=== PATIENT | male | born 1995 | race Two or more races ===

== ENCOUNTER 2017-03-10 11:58 | Emergency (ER) | payer OTHER ==
[~2017-03-10] VITALS: Ht 170.2 cm; Wt 97.5 kg
--- NOTE | 2017-03-10 12:15 | Emergency Room Report ---
History of Present Illness General Chief Complaint: Laceration Source: Patient Present Illness HPI 21 y/o male c/o cut on left pinky finger at 10:30am. States he was working on the [employer] when his finger got caught. States he has a lot of bleeding on his left hand (non-dominant) that was able to be stopped with direct pressure. States he is able to bending his finger and has sensation of finger / hand. States his Tdap is UTD. No other complaints. Allergies: Coded Allergies: No Known Allergies (Unverified , 03/10/17) Patient History Limited by: language barrier Past Medical History: see triage record Past Surgical History: none Pertinent Family History: none Immunizations: UTD Reviewed Nursing Documentation: PMH: Agreed, PSxH: Agreed Nursing Documentation-PMH Past Medical History: No Stated History Review of Systems All Other Systems: negative except mentioned in HPI Physical Exam Vital Signs Date Time Temp Pulse Resp B/P Pulse Ox O2 Delivery O2 Flow Rate FiO2 03/10/17 12:03 98.2 63 18 166/96 97 Room Air Sp02 EP Interpretation: reviewed, normal General Appearance: no apparent distress, alert, GCS 15, non-toxic Head: normocephalic, atraumatic Eyes: bilateral eye normal inspection ENT: normal ENT inspection Respiratory: no respiratory distress, speaking full sentences Cardiovascular #1: normal peripheral pulses, normal capillary refill Musculoskeletal: back normal, gait/station normal, normal range of motion, non- tender Neurologic: alert, oriented x3, responsive, motor strength/tone normal, sensory intact, speech normal Psychiatric: judgement/insight normal, memory normal, mood/affect normal, no suicidal/homicidal ideation Skin: normal color, no rash, warm/dry, well hydrated, laceration - skin avulsion on tip of left pinky finger Medical Decision Making PA Attestation Dr. Alex my supervising physician with whom patient management has been discussed with. Diagnostic Impression: Primary Impression: Avulsion of skin of finger Qualified Codes: S61.209A - Unspecified open wound of unspecified finger without damage to nail, initial encounter ER Course Pt. presents to the ED c/o laceration Ddx considered but are not limited to avulsion, laceration, abrasion, fracture, tendon rupture, contusion Vital signs: are WNL, pt. is afebrile H&PE are most consistent with skin avulsion ORDERS: none required at this time, the diagnosis is clinical ED INTERVENTIONS: Debridement of poorly vascularized skin flap, wound irrigation , surgicel, dressing. Surgicel did not stop bleeding and then silver nitrate was used with some improvement but still having bleeding. Cautery with heat pen was then used and hemostasis was achieved. DISCHARGE: At this time pt. is stable for d/c to home. Will provide printed patient care instructions, and any necessary prescriptions. Care plan and follow up instructions have been discussed with the patient prior to discharge. Chest X-Ray Diagnostic Results Chest X-Ray Ordered: No Last Vital Signs Date Time Temp Pulse Resp B/P Pulse Ox O2 Delivery O2 Flow Rate FiO2 03/10/17 12:03 98.2 63 18 166/96 97 Room Air Status: improved Disposition: HOME, SELF-CARE Condition: Improved Patient Instructions: Nonsutured Laceration Care Additional Instructions: Keep wound clean and dry. Avoid sun exposure to minimize scarring. Patient advised that they can take a shower or bath, but be sure to pat the area dry with a towel afterward. Patient should come back sooner if they experience any red areas that get bigger, more swollen, have pus draining from wound, or if the site becomes more painful. STEFANIA LUKE Mar 10, 2017 12:15
[2017-03-10 12:23] VITALS: BP 157/93
[2017-03-10] MEDS ORDERED: Surgicel 4in x 8in TOPIC ONE ×2 (12:42→13:30)
[2017-03-10] MEDS ORDERED: Bacitracin Oint UD TOPIC ONE ×2 (13:05→13:30)
[2017-03-10] MEDS ORDERED: Silver Nitrate Stick TOPIC ONE ×2 (13:15→13:30)
[2017-03-10 13:45] VITALS: BP_SYST 151; BP_SYST 157; BP_DIAS 89; BP_DIAS 93
== END 2017-03-10 13:46 | disposition home or self-care (01) ==
LOC: EMR 12:31
DX: S61.217A Laceration without foreign body of left little finger without damage to nail, initial encounter (principal); W27.4XXA Contact with kitchen utensil, initial encounter; Y92.511 Restaurant or cafe as the place of occurrence of the external cause; Y99.0 Civilian activity done for income or pay
CPT/HCPCS: 99284